=== PATIENT | female | born 1985 | race Caucasian/White ===

== ENCOUNTER → 2022-12-14 | Day surgery (SDC) | payer MEDICAID, OTHER ==
[~2022-12-14] VITALS: Ht 160 cm; Wt 64.9 kg
[~2022-12-14] MED LIST: ALBU90AE IH; ALPR0.5T PO; ATIVAN; BUPIVACAINE HCL/PF 0.5% (5MG/ML) 10ML ONE; CEFAZOLIN SODIUM 1000MG/VIAL ONE; DEXAMETHASONE 4MG/ML 1ML VIAL ONE; ETHI1TAB30 PO; FENTANYL CITRATE/PF 50MCG/ML 2ML VIAL IV PRN; FENTANYL CITRATE/PF 50MCG/ML 2ML VIAL ONE; GLYCOPYRROLATE 0.2 MG/ML 2ML VIAL ONE; HYDR-459 PO; HYDROCODONE/ACETAMINOPHEN 5/325MG TABLET PO NR; IBUP-1008 PO; LACTATED RINGERS 1,000 ML IV SCH; METOCLOPRAMIDE HCL 10MG/2ML VIAL ONE; MIDAZOLAM HCL 2 MG/2 ML VIAL ONE; MULT-1116 PO; NEOSTIGMINE METHYLSULFATE 1MG/ML 10 ML VIAL ONE; ONDANSETRON HCL 4MG/2ML INJ IV PRN; ONDANSETRON HCL 4MG/2ML INJ ONE; PHENYLEPHRINE HCL 10 MG/ML 1ML (IV VIAL) IV ONE; PROPOFOL 200MG/20ML VIAL IV ONE; ROCURONIUM BROMIDE 10MG/ML VIAL 5ML IV ONE; SCOPOLAMINE HYDROBROMIDE PATCH 72HR TD NR; SKIN ADHESIVE 0.7 GM EA TOP ONE; SUCCINYLCHOLINE CHLORIDE 200MG/10ML IV ONE
[2022-12-14 06:29] LABS: UCG SCREEN NEGATIVE
[2022-12-14] MEDS: HYDROMORPHONE HCL/PF 2MG/ML CPJ IV PRN ×4 (08:57→10:10)
[2022-12-14 10:38] VITALS: BP 113/81; PULSE 62; RESP 17
== END | disposition home or self-care (01) ==
LOC: OR 05:38
PROVIDERS: ATTEND Surgery
DX: K80.10 Calculus of gallbladder with chronic cholecystitis without obstruction (principal); J45.909 Unspecified asthma, uncomplicated; Z87.891 Personal history of nicotine dependence; Z79.899 Other long term (current) drug therapy; Z98.890 Other specified postprocedural states
CPT/HCPCS: 81025; 88304; 47562; J3010; J3490 ×3; J0690; J1100; J2765; J2250; J2710; J2405; J2370; J2704; J0330; J1170